=== PATIENT | male | born 1980 | race Caucasian/White ===

== ENCOUNTER 2016-09-06 22:05 | Emergency (ER) | payer MEDICAID ==
[~2016-09-06] VITALS: Ht 167.6 cm; Wt 72.0 kg
[~2016-09-06 22:05] MED LIST: ALBU8.5H3; AMOX500C6; BECL8.7A; CEFU500T PO; CROM10DR6 BOTH EYES; IBUP-1542 PO; PRED20TA PO
[2016-09-06 22:07] VITALS: Ht 167.6 cm; Wt 72.0 kg
--- NOTE | 2016-09-07 00:01 | ERD ---
ER Documentation Chief Complaint Date/Time DATE: 09/06/16 TIME: 23:44 Chief Complaint body rashes, body aches, runny nose., headaches HPI This pleasant [id number] patient presenting to emergency department today with sudden onset of pruritic rash bilateral axilla growing and scattered on arms. Patient reports that he has not had a rash like this in the past, patient works in construction is in the heat all day reports sweating a lot, patient reports he has had upper respiratory symptoms 3 days, cough, intermittent fever, fatigue. Patient reports using [id number] cold and flu medication with little relief of symptoms. Patient reports cough is productive for phlegm, denies shortness of breath, chest pain, chills. ROS All systems reviewed and are negative except as per history of present illness. Medications Home Meds Active Scripts Ibuprofen* (Motrin*) 600 Mg Tab, 600 MG PO Q6, #20 TAB Prov:EARL AYALA MD 07/29/15 Prednisone* (Prednisone*) 20 Mg Tab, 40 MG PO DAILY for 4 Days, TAB Prov:EARL AYALA MD 07/29/15 Cefuroxime Axetil* (Ceftin*) 500 Mg Tablet, 500 MG PO BID for 10 Days, TAB Prov:EARL AYALA MD 07/29/15 Cromolyn Sodium* (Cromolyn Sodium*) 4% - 10 Ml Drops, 1 DROP BOTH EYES QID for 10 Days, EA Prov:CIERA RUBY PA-C 05/21/15 Reported Medications Beclomethasone Dip* (Qvar 40*) 7.3 Gm Inha 08/12/10 Albuterol Sulfate* (Proair HFA*) 8.5 Gm Hfa.aer.ad 08/12/10 Amoxicillin* (Amoxil*) 500 Mg Capsule 08/12/10 Allergies Allergies: Coded Allergies: amoxicillin (Verified Allergy, Unknown, 07/29/15) PMhx/Soc Medical and Surgical Hx: pt denies Medical Hx, pt denies Surgical Hx History of Surgery: No Anesthesia Reaction: No Hx Neurological Disorder: No Hx Respiratory Disorders: No Hx Cardiac Disorders: No Hx Psychiatric Problems: No Hx Miscellaneous Medical Probl: Yes (URI) Hx Alcohol Use: No Hx Substance Use: No Hx Tobacco Use: No Smoking Status: Never smoker Physical Exam Vitals Vital Signs Date Time Temp Pulse Resp B/P Pulse Ox O2 Delivery O2 Flow Rate FiO2 09/06/16 22:07 97.8 93 20 151/67 100 Vitals stable, triage notes reviewed Physical Exam Const: No acute distress Head: Atraumatic Eyes: Normal Conjunctiva PERRLA, EOMI ENT: Normal External Ears, Nose and Mouth, mucous membranes moist Neck: Resp: Chest rises and falls symmetrically clear to auscultation bilaterally no rales wheezes or rhonchi Cardio: Abd: Skin: Patient has a distinct circumscribed rash approximately 0.5 mm with raised red borders and white center, linear raised red rash bilateral axilla and bilateral groin, skin is intact, no lichenification or scratch chan, no evidence of secondary infection Back: Ext: Neur: Awake and alert Psych: Normal Mood and Affect Procedures/MDM This 35-year-old male patient presents to emergency department with 2 unrelated complaints, first 3 day history of upper respiratory symptoms, cough, with phlegm production, body aches. In second a pruritic raised rash bilateral groin , axilla, and scattered on arms, acute bacterial causation is not suspected. Pneumonia, bronchitis, not suspected, Contreras-Flaco syndrome, eczema, psoriasis or not suspected. Physical exam supports upper respiratory infection and a dermatophytes infection. Patient will be treated with ketoconazole for his rash and Mucinex for upper respiratory symptoms. Return to emergency department for worsening of symptoms. Teaching provided that he must follow-up with primary care physician that fungal infection could require additional treatment I feel the patient is stable for discharge at this time and outpatient management by primary care physician. I have discussed results, examination findings, the treatment plan with the patient and family present prior to discharge. Indications for emergent reevaluation, side effects of medication were also discussed. All questions were answered. Patient verbalizes understanding and agrees with plan of care. Departure Diagnosis: Primary Impression: URI (upper respiratory infection) URI type: unspecified URI Qualified Code: J06.9 - Upper respiratory tract infection, unspecified type Additional Impression: Tinea Condition: Good Patient Instructions: Tinea Corporis, Tinea Cruris, Jock Itch, Uri, Viral, No Abx (Adult) Additional Instructions: Thank you for for coming to [facility] for your care today. Please ask your nurse or provider if you have questions about your care today and do not leave until all your questions have been answered. Please use any medications given as directed and follow-up with your doctor (or the doctor you were referred to) in the next 2-3 days. If you do not have a primary care doctor you may follow up at the [facility] (listed below). You may also use motrin and tylenol as needed for fever and/or pain unless instructed otherwise by your provider or nurse. Indications for more urgent follow-up have been discussed, but you may return to the Emergency Department at ANY time for any worrisome or worsening symptoms. If you have abdominal pain, please know that no test or exam you received is perfect and you should follow up within 8 hours for continued pain. If you had any imaging studies today, such as an X-Ray or CT Scan, these studies will be reviewed later by a radiologist. You will be called if there are important findings that were not identified today, so make sure the contact information you provided at registration is correct. If you received any narcotic pain control medicine today, such as Vicodin, Morphine or Dilaudid, your coordination and judgment may be affected for a number of hours. Please do not drive or operate heavy machinery, and you may want someone to assist you at home. If you were given a prescription for narcotic medication, be aware that it is very addictive- use sparingly and only if necessary. RYNE LUNA September 06, 2016 23:58
[2016-09-07] MEDS ORDERED: KETO120S2 TOP (00:02)
[2016-09-07] MEDS ORDERED: GUAI120011 PO (00:03)
== END 2016-09-07 01:19 | disposition home or self-care (01) ==
LOC: FTE 22:05
DX: J06.9 Acute upper respiratory infection, unspecified (principal); B35.9 Dermatophytosis, unspecified
CPT/HCPCS: 99283